=== PATIENT | male | born 1980 ===

== ENCOUNTER 2016-12-27 12:18 | Emergency (ER) | payer BC ==
[2016-12-27 12:30] VITALS: BP 129/81; PULSE 68; RESP 18; TEMP 98.2; O2SAT 98
--- NOTE | 2016-12-27 13:44 | C.PDOC ---
History Of Present Illness 36 yr old male presents to the ER with complaints of intermittent left lower back pain, which radiates down the left leg for the past 3 months. Patient states the pain comes and goes, is not relieved with Tylenol. Patient denies history of trauma, chest pain, shoulder pain, arm pain, saddle anesthesia, dysuria, hematuria, frequency, incontinence, weakness or numbness. Time Seen by Provider: 12/27/16 12:59 Chief Complaint (Nursing): Lower Extremity Problem/Injury History Per: Patient History/Exam Limitations: no limitations Onset/Duration Of Symptoms: Intermittent Episodes (For the past 3 months) Current Symptoms Are (Timing): Still Present Past Medical History Reviewed: Historical Data, Nursing Documentation, Vital Signs Vital Signs: Last Vital Signs Temp 98.2 F 12/27/16 12:29 Pulse 68 12/27/16 12:29 Resp 18 12/27/16 12:29 BP 129/81 12/27/16 12:29 Pulse Ox 98 12/27/16 14:26 Family History: States: No Known Family Hx - Social History Hx Alcohol Use: No Hx Substance Use: No - Immunization History Hx Tetanus Toxoid Vaccination: No Hx Influenza Vaccination: No Hx Pneumococcal Vaccination: No Review Of Systems Except As Marked, All Systems Reviewed And Found Negative. Cardiovascular: Negative for: Chest Pain Genitourinary: Negative for: Dysuria, Frequency, Incontinence, Hematuria Musculoskeletal: Positive for: Back Pain (Left lower back pain), Leg Pain ( Radiating pain to the left leg). Negative for: Shoulder Pain, Arm Pain Neurological: Negative for: Weakness, Numbness Physical Exam - Physical Exam Appears: Well, Non-toxic, No Acute Distress Skin: Warm, Dry, No Rash Head: Atraumatic, Normacephalic Oral Mucosa: Moist Neck: Normal, Normal ROM, No Midline Cervical Tenderness, Supple Chest: Symmetrical, No Tenderness Cardiovascular: Rhythm Regular, No Murmur Respiratory: Normal Breath Sounds, No Rales, No Rhonchi, No Stridor, No Wheezing Gastrointestinal/Abdominal: Normal Exam, Soft, No Tenderness, No Guarding, No Rebound Back: Normal Inspection, No Vertebral Tenderness, Other ((+) left Sciatic notch tenderness) Extremity: Normal ROM, No Pedal Edema, No Calf Tenderness, No Swelling Pulses: Left Dorsalis Pedis: Normal, Right Dorsalis Pedis: Normal Neurological/Psych: Oriented x3, Normal Speech, Normal Motor, Normal Sensation ED Course And Treatment O2 Sat by Pulse Oximetry: 98 Disposition Counseled Patient/Family Regarding: Diagnosis, Need For Followup, Rx Given - Disposition Disposition: HOME/ ROUTINE Disposition Time: 14:27 Condition: STABLE Additional Instructions: Take Naproxen twice a day with food. FOllow up in medical clinic in a week if pain not getting better; would then recommend physical therapy. Return to ER for any worsening symptoms. 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 - Scribe Statement The provider has reviewed the documentation as recorded by the Scribe Eve Terry All medical record entries made by the Scribe were at my direction and personally dictated by me. I have reviewed the chart and agree that the record accurately reflects my personal performance of the history, physical exam, medical decision making, and the department course for this patient. I have also personally directed, reviewed, and agree with the discharge instructions and disposition.
== END 2016-12-27 15:00 | disposition home or self-care (01) ==
LOC: C.ER 12:18
DX: M54.32 Sciatica, left side (principal)
CPT/HCPCS: 96372; 99284; J1885

== ENCOUNTER 2017-01-16 09:21 | Emergency (ER) | payer BC ==
--- NOTE | 2017-01-16 09:36 | C.PDOC ---
History Of Present Illness 36 y/o male presents to ED with complaints of productive cough, subjective fever and body aches since yesterday. Patient has taken Tylenol and Ibuprofen for fever reduction. Patient denies N/V/D, SOB, chest pain or abdominal pain. No other complaints at this time. Time Seen by Provider: 01/16/17 09:29 Chief Complaint (Nursing): Flu-like Symptoms History Per: Patient History/Exam Limitations: no limitations Onset/Duration Of Symptoms: Days Current Symptoms Are (Timing): Still Present Associated Symptoms: Fever, Cough. denies: Vomiting, Diarrhea Past Medical History Reviewed: Historical Data, Nursing Documentation, Vital Signs Vital Signs: Last Vital Signs Temp 100.6 F H 01/16/17 10:03 Pulse 92 H 01/16/17 09:27 Resp 16 01/16/17 09:27 BP 131/81 01/16/17 09:27 Pulse Ox 98 01/16/17 10:02 Family History: States: No Known Family Hx - Social History Hx Alcohol Use: No Hx Substance Use: No - Immunization History Hx Tetanus Toxoid Vaccination: No Hx Influenza Vaccination: No Hx Pneumococcal Vaccination: No Review Of Systems Constitutional: Positive for: Fever. Negative for: Sweats Cardiovascular: Negative for: Chest Pain Respiratory: Positive for: Cough. Negative for: Shortness of Breath Gastrointestinal: Negative for: Nausea, Vomiting, Abdominal Pain, Diarrhea Skin: Negative for: Rash Neurological: Negative for: Weakness Physical Exam - Physical Exam Appears: Non-toxic, No Acute Distress Skin: Normal Color, Warm Head: Atraumatic, Normacephalic Eye(s): bilateral: Normal Inspection Oral Mucosa: Moist Cardiovascular: Rhythm Regular Respiratory: Normal Breath Sounds, No Rales, No Rhonchi, No Wheezing Gastrointestinal/Abdominal: Soft, No Tenderness, No Guarding, No Rebound Extremity: Normal ROM Neurological/Psych: Oriented x3, Normal Speech, Normal Cognition, Other (No focal deficits) ED Course And Treatment O2 Sat by Pulse Oximetry: 98 (Room air ) Pulse Ox Interpretation: Normal Disposition - Disposition Disposition: HOME/ ROUTINE Disposition Time: 10:58 Condition: STABLE - Clinical Impression Clinical Impression: Influenza - 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 / has examined the patient and agrees with the treatment plan. - Scribe Statement The provider has reviewed the documentation as recorded by the Marquez Coleman All medical record entries made by the Marquez were at my direction and personally dictated by me. I have reviewed the chart and agree that the record accurately reflects my personal performance of the history, physical exam, medical decision making, and the department course for this patient. I have also personally directed, reviewed, and agree with the discharge instructions and disposition.
--- NOTE | 2017-01-16 10:49 | RAD ---
HISTORY: cough fever COMPARISON: No prior. TECHNIQUE: Chest PA and lateral FINDINGS: LUNGS: No active pulmonary disease. PLEURA: No significant pleural effusion identified. No pneumothorax apparent. CARDIOVASCULAR: Normal. OSSEOUS STRUCTURES: No significant abnormalities. VISUALIZED UPPER ABDOMEN: Normal. OTHER FINDINGS: None. IMPRESSION: No active disease.
[2017-01-16 11:10] VITALS: BP 108/72; PULSE 91; RESP 18; TEMP 99.5; O2SAT 97
== END 2017-01-16 11:10 | disposition home or self-care (01) ==
LOC: C.ER 09:21
DX: J11.1 Influenza due to unidentified influenza virus with other respiratory manifestations (principal)